=== PATIENT | male | born 1980 | race Caucasian/White ===

== ENCOUNTER 2023-08-27 09:58 | Outpatient (AMB) | payer OTHER, SELFPAY ==
--- NOTE | 2023-08-27 10:13 | A.SPINEOV_ITS ---
Intake Intake Visit Reasons: spinal stimulator not working properly Intake Note: Mr. Paige is here today for SCS Malfuction and back pain. Landing Man Required: No Assessment & Plan Assessment & Plan (1) Lumbago: Code(s): M54.50 - Low back pain, unspecified Plan Arik (samuel Paige) is a pleasant 42 y/o M who comes in today with a CC of chronic 10/10 pain which he typically manages with a spinal cord stimulator. He reports he has a past medical history of multiple herniated discs in the lumbar spine. After two attempted diskectomies completed by neurosurgeons in [place], he had a series of lumbar spine injections, then had a spinal cord stimulator placed. He reports that when his spinal cord stimulator is working he has good pain relief and it makes it ?manageable. He reports that he takes tramadol daily to help control his pain. He states that ecoy-haf-zmznrio pain medications are not useful for him. He has tried the bulk of conservative measures including ice, heat, zjda-ruf-yoaasgu pain patches, and topical ointment/creams. He states that the reason for his self-referral today was to be evaluated for a spinal cord stimulator that has constant problems. He reports that it was placed in [place] by Artur Antunez at [facility] in 2019. He reports he has had to have the battery changed twice in the last couple of years because the device continuously weekends or stops working. It is currently in a state where it works intermittently. PMH: 2 previous lumbar diskectomies completed in [place]. Seasonal allergies. Social hx: Patient does not use nicotine, does smoke cannabis daily. Medications: Loratadine, ketoconazole, tramadol. Allergies: Erythromycin. Physical exam: Cranial nerves II-XII grossly intact. No sensational deficits. No pain to direct palpation of thoracic/lumbar spine. He has a spinal cord stimulator placed on the left lateral side of the mid-lumbar spine. There is a lead incision midway up the thoracic spine. He also has prior diskectomy scars on the right lateral side of the mid-lumbar spine. The patient is able to ambulate well and rises from a seated position without difficulty. Imaging review: CT scan completed at [facility] (patient has disc) confirms placement of spinal cord stimulator on the left lateral side of the mid-lumbar spine. There is severe degenerative disc disease at L5-S1. Impression: Arik is a pleasant 42-year-old male who comes in today with a chief complaint of 10/10 low back pain that has been ongoing since his spinal cord stimulator was placed in 2019. He reports he has had multiple issues with it including battery malfunction which had to be replaced twice in the last few years. All of his previous procedures were completed in [place], and he recently moved up to [place]. He is seeing us instead of the provider who previously evaluated him in place the spinal cord stimulator because he will not be going back down to [place] per his report. His spinal cord stimulator medical card will be scanned to his chart. The options we discussed are as follows: 1) We could replace the battery in his spinal cord stimulator again, however he is not very enthusiastic about this as the battery has already been placed multiple times. 2) We could remove the spinal cord stimulator completely but this would leave him with back pain and no obvious or readily available solution to treat this pain. 3) We can refer him to our colleagues in pain management to evaluate him for possible placement of a new spinal cord stimulator, and we can assist in the removal of his current spinal cord stimulator. After much discussion he settled on being referred to our colleagues at pain management. Thank you for allowing us to care for your patient. The total time spent with this visit with this patient was 45 minutes reviewing history, physical exam, CT scan imaging review, and implementation of treatment plan or further diagnostic testing Vikram Rodrigez MD,PhD [facility] Coding Level of Care Code New Pt Level 4 (94215) Diagnoses Lumbago M54.50
== END 2023-08-27 10:33 | disposition home or self-care (01) ==
PROVIDERS: PCP Physician Assistant; Visit Provider Physician Assistant
DX: M54.50 Low back pain, unspecified (principal)
CPT/HCPCS: 99204

== ENCOUNTER → 2023-08-27 09:58 | Outpatient (BNVA) | payer OTHER, SELFPAY | PROVIDERS: PCP Physician Assistant; Visit Provider Physician Assistant | DX: M54.50 Low back pain, unspecified (principal) | CPT/HCPCS: 99202 ==

== ENCOUNTER 2023-09-03 10:36 | Outpatient (AMB) | payer OTHER, SELFPAY ==
--- NOTE | 2023-09-03 10:41 | A.OFFVIS_ITS ---
Intake Vital Signs 09/03/23 10:55 Height 5 ft 10 in Weight 245 lb BMI 35.2 BP 148/98 H Blood Pressure Location Rt brachial Position Standing Respiration 18 Pulse 93 Pulse Source Pulse Oximeter Pulse Oximetry (%) 96 Oxygen Delivery Method Room Air Intake Visit Reasons: DISCUSS SPINAL CORD STIMULATOR/CONFIRM Intake Note: Patient comes in for initial visit was referred by spine center. Reports pain 04/08. Allergies erythromycin base [From Erythrocin] Allergy (Mild, Verified 09/03/23 10:47) Unknown HPI HPI Comments History of Present Illness Details Mr. Paige, who prefers to be called as such ?Mr. Paige ?, is here with complains on lower back pain and pain radiation into bilateral lower extremities. He reports inability to seat for a long period of time. He reports that he suffers from this pain for more than 10 years. Originally he was treated for this pain with intradiscal surgery in [place], he reported that he had to surgeries in 1 level presumably L5-S1. In 2012 he was implanted with [employer] spinal cord stimulator. The device was implanted apparently via surgical laminotomy in the thoracic spine. He reports that his battery were replaced 3 times and nevertheless he denies the help from the spinal cord stimulator. He reports that spinal cord stimulator initially was very effective for control of his pain. Now it has been more than 10 years since the implantation. He also reports that his bilateral lower extremities from the level of mid thigh completely numb. He states that he had EMG performed in [place] however he does not remember the name of the facility. He reports today that his pain is 10 + out of 10 he is unable to sleep normally he can not do activities of daily living he can not take care of himself but he can not function normally. He is suffering from 24 hours 7 days a week severe pain without variation. He was prescribed tramadol for his pain and he is taking 50 mg 4 times a day. He had numerous attempts at physical therapy each time physical therapy gave him very short pain relief insufficient enough to help his pain. [facility] Medical History (Updated 09/03/23 @ 11:48 by Dave Cerda MD) Vertebrogenic low back pain Social History (Updated 09/03/23 @ 10:58 by Denisse Garcia) Alcohol intake: former Patient Tobacco Use Status: Former Tobacco user Use of substances other than those prescribed or required for medical reasons: Yes Substance Use Type: Marijuana Review of Systems Const All systems reviewed & are unremarkable except as noted in HPI and below ENT Reports Normal hearing present Neuro Reports Normal hearing present, Denies Abnormal speech present and Denies Sensory deficit (Neuro) Physical Exam Vital Signs: Last Vital Signs Pulse 93 09/03/23 10:55 Resp 18 09/03/23 10:55 BP 148/98 H 09/03/23 10:55 Pulse Ox 96 09/03/23 10:55 Oxygen Delivery Method Room Air 09/03/23 10:55 BMI result Body Mass Index 35.2 Const General: no acute distress Nutritional Appearance: well nourished and other (Very muscular well-developed gentleman) Orientation/consciousness: patient oriented x3 Eyes General: appearance normal, both eyes and all related structures Pupils: Equal, round and reactive pupils present EOM: EOMs intact bilaterally Neck Neck: Yes full ROM Chest Chest palpation & inspection: normal inspection of the chest Resp Effort & Inspection: normal respiratory effort, able to speak in complete sent ences, normal respiratory pattern, no audible wheezes and no cough Cardio Jugular venous distension: no JVD GI Inspection: Yes normal to inspection Back/Spine/Pelvis Other: Cranial nerves II-XII grossly intact. Reports numbness of bilateral lower extremities from the level of mid thighs. No pain to direct palpation of thoracic/lumbar spine. He has a spinal cord stimulator placed on the left lateral side of the mid-lumbar spine. There is a lead incision midway up the thoracic spine. He also has prior diskectomy scars on the right lateral side of the mid-lumbar spine. The patient is able to ambulate well and rises from a seated position without difficulty. He reports pain exacerbation with prolonged sitting. Neuro General: patient oriented x3 and gait normal Cranial nerves: Yes CN's II-XII intact bilaterally, Yes Equal, round and reactive pupils present, Yes Normal hearing present and Yes Ability to bilaterally elevate shoulders present Speech: No Abnormal speech present Gait exam (Neuro): Normal gait present Motor exam (neuro): 5/5 motor strength present throughout Sensory Exam: No Sensory deficit (Neuro) Extrem General: No pedal edema Psych Speech and movement: Normal speech and movement present Affect: normal affect Attitude: cooperative Thought process: Normal thought process present Thought content: Normal thought content present Insight: Good insight present (Psych) Judgement: Good judgement present (Psych) Results Reviewed Results Reviewed: The patient had CT scan of the lumbar spine at [facility]. Attention was attracted to endplate ulceration at L5-S1 level. Assessment & Plan Assessment & Plan (1) Postlaminectomy syndrome: Code(s): M96.1 - Postlaminectomy syndrome, not elsewhere classified (2) Vertebrogenic low back pain: Code(s): M54.51 - Vertebrogenic low back pain (3) Low back pain associated with a spinal disorder other than radiculopathy or spinal stenosis: Code(s): M54.50 - Low back pain, unspecified (4) Spinal cord stimulator dysfunction: Code(s): T85.192A - Other mechanical complication of implanted electronic neurostimulator of spinal cord electrode (lead), initial encounter Plan Unfortunately this patient was given spinal cord stimulator very early in his life. Now the device ran its course and most likely will not be effective for his pain in significant extent. Attention is attracted to the changes of the L5-S1 vertebral bodies which could be evident of vertebra genic pain syndrome. Unfortunately because of his spinal cord stimulator patient can not go to the MRI machine. I will order him a CT scan with and without contrast for the lumbar spine. I also would like to see thoracic CT to evaluate position of the spinal cord stimulator paddle and ability of this device to be removed. It is remains to be seen whether or not intercept procedure could help this patient. Possibility exists that after so long a course of treatment those are very advanced Modic type changes 3 and4. At this moment before evaluating his CT scan with and without contrast of the lumbar spine I can only offer him intrathecal pain pump. Because he is now under treatment with opioids I can offer him trials of Prialt and bupivacaine. Eventually if he will develop better pain control on those medications and we will be able to wean him off of the tramadol we can add opioids to his pain pump. Brochure Buxfer I DDD was given to the patient. The psychological evaluation need was explained to the patient. I will see this patient as soon as he will complete his CT scan of the lumbar and thoracic spine with and without contrast. 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 Coding Level of Care Code New Pt Level 4 (69644) Diagnoses Postlaminectomy syndrome M96.1 Vertebrogenic low back pain M54.51 Low back pain associated with a spinal disorder other than radiculopathy or spinal stenosis M54.50 Spinal cord stimulator dysfunction T85.192A
[2023-09-03 10:55] VITALS: BP 148/98; PULSE 93; RESP 18; O2SAT 96; BMI 35.2
== END 2023-09-03 11:28 | disposition home or self-care (01) ==
PROVIDERS: PCP Physician Assistant; Referring Provider Physician Assistant; Visit Provider Anesthesiology
DX: M96.1 Postlaminectomy syndrome, not elsewhere classified (principal); M54.51 Vertebrogenic low back pain; M54.50 Low back pain, unspecified; T85.192A Other mechanical complication of implanted electronic neurostimulator of spinal cord electrode (lead), initial encounter
CPT/HCPCS: 99204

== ENCOUNTER → 2023-09-03 10:36 | Outpatient (BNVA) | payer OTHER, SELFPAY | PROVIDERS: PCP Physician Assistant; Referring Provider Physician Assistant; Visit Provider Anesthesiology | DX: T85.192A Other mechanical complication of implanted electronic neurostimulator of spinal cord electrode (lead), initial encounter (principal); M96.1 Postlaminectomy syndrome, not elsewhere classified; M54.51 Vertebrogenic low back pain; M54.50 Low back pain, unspecified | CPT/HCPCS: 99202 ==

== ENCOUNTER 2023-09-17 10:37 | Outpatient (AMB) | payer OTHER, SELFPAY ==
--- NOTE | 2023-09-17 10:57 | A.SPINEOV_ITS ---
Intake Intake Visit Reasons: discuss stimulator removal Intake Note: Mr. Paige is here to Discuss Stimulator Removal Allergies erythromycin base [From Erythrocin] Allergy (Mild, Verified 09/03/23 10:47) Unknown Assessment & Plan Assessment & Plan (1) Spinal cord stimulator dysfunction: Code(s): T85.192A - Other mechanical complication of implanted electronic neurostimulator of spinal cord electrode (lead), initial encounter Plan Arik is a pleasant 42-year-old male who comes in today with a chief complaint of continued low back pain despite previous lumbar spine surgeries and placement of a spinal cord stimulator. We most recently referred him to pain management for evaluation of his low back pain and recommendations regarding his pain control. They offered him several interventions and ordered imaging for him. Unfortunately he was not satisfied with this answer and requested to be seen in our office again for additional referral options. We discussed the possibility of having his spinal cord stimulator battery replaced. Unfortunately if we were to schedule him for this he would be booked out to November. We referred him back to our colleagues at pain management, specifically Dr. Reis per the patients request to discuss replacement of a spinal cord stimulator battery. I reached out to Dr. Reis to make him aware of this. Total amount of time spent in this visit was 20 minutes in discussion of symptoms, referral options, and subsequent plan of care. Vikram Rodrigez MD,PhD [facility] Orders: Referrals Pain Management Referral T85.192A - Other mechanical complication of implanted electronic neurostimulator of spinal cord electrode (lead), initial encounter Coding Level of Care Code Est Pt Level 3 (35146) Diagnoses Spinal cord stimulator dysfunction T85.192A
== END 2023-09-17 11:41 | disposition home or self-care (01) ==
LOC: HO.HNS 10:37
PROVIDERS: PCP Physician Assistant; Visit Provider Physician Assistant
DX: T85.192A Other mechanical complication of implanted electronic neurostimulator of spinal cord electrode (lead), initial encounter (principal)
CPT/HCPCS: 99213

== ENCOUNTER → 2023-09-17 10:37 | Outpatient (BNVA) | payer OTHER, SELFPAY | PROVIDERS: PCP Physician Assistant; Visit Provider Physician Assistant | DX: T85.192A Other mechanical complication of implanted electronic neurostimulator of spinal cord electrode (lead), initial encounter (principal) | CPT/HCPCS: 99212 ==

== ENCOUNTER → 2023-09-24 09:18 | Outpatient (BNVA) | payer OTHER, SELFPAY | PROVIDERS: PCP Physician Assistant; Visit Provider Anesthesiology ==

== ENCOUNTER 2023-10-22 08:32 | Outpatient (REF) | payer OTHER, SELFPAY ==
--- NOTE | ~2023-10-22 | CT_ITS ---
EXAMINATION: CT THORACIC SPINE CLINICAL INFORMATION: Mechanical complication of implanted electronic neurostimulator, with echogenic back pain COMPARISON: None available. TECHNIQUE: Multiple 2 mm axial images were obtained from C7 to T12/L1 level before and after intravenous injection of 85 mL Omnipaque 350. Bone window and soft tissue window images were reconstructed. Coronal and sagittal bone window images were reconstructed from the axial image data. This CT examination was performed using dose optimization techniques as appropriate, variously including the following: *Automated exposure control *Adjustment of mA and/or kV according to patient size (this includes techniques or standardized protocols for targeted exams where dose is matched to indication/reason for exam; i.e. extremities or head) *Use of iterative reconstruction technique DLP: 2085 mGy-cm FINDINGS: The visualized thoracic spine is intact with normal alignment. Intervertebral disc spaces are mildly reduced from T7-T8 to T10-T11. Vertebral degenerative changes are seen at superior T8 and inferior T9. Prominent sharp right lateral anterior T8-T9 bridging syndesmophytes are present. Bilateral thoracic apophyseal joints, pedicles, spinous processes are unremarkable. Bilateral thoracic bony neural foramina are patent. The visualized posterior medial portion of bilateral ribs are intact. No evidence of bony thoracic spinal stenosis. Lower back subcutaneous nerve stimulator is seen with electrodes passing up the thoracic spinal canal ending at T7/T8 junction. Post contrast images show no abnormal enhancing intracanalicular mass lesion or rim-enhancing fluid collection. Evaluation remains limited by metallic artifacts caused by nerve stimulator electrodes. CT/CT thoracic spine wo/w IV con IMPRESSION: 1. No evidence of acute fracture or dislocation of the thoracic spine. 2. Mild degenerative thoracic disc disease from T7-T8 to T10-T11, prominent T8-T9 bridging syndesmophytes are seen. 3. Lower back subcutaneous nerve stimulator is seen with electrodes passing up the thoracic spinal canal ending at T7/T8 junction. 4. No evidence of thoracic spine intracanalicular enhancing mass lesion or epidural abscess.
--- NOTE | ~2023-10-22 | CT_ITS ---
EXAMINATION: CT LUMBAR SPINE WITHOUT AND WITH CONTRAST CLINICAL INFORMATION: Postlaminectomy syndrome, vertebrogenic low back pain COMPARISON: None available. TECHNIQUE: Multiple 2 and 1.5 mm axial images of the lumbar spine were obtained from lower T12 to S1 levels without IV contrast enhancement. Bone window and soft tissue window images were reconstructed. Coronal and Sagittal bone window images were also reconstructed from the axial image data. This CT examination was performed using dose optimization techniques as appropriate, variously including the following: *Automated exposure control *Adjustment of mA and/or kV according to patient size (this includes techniques or standardized protocols for targeted exams where dose is matched to indication/reason for exam; i.e. extremities or head) *Use of iterative reconstruction technique DLP: 3527.69 mGy-cm FINDINGS: T12/L1: Bony structures are intact with normal alignment. Intervertebral disc height is normal. Bilateral neuroforamina are patent. Bilateral apophyseal joints are intact with normal alignment. L-1/L-2: Bony structures are intact with normal alignment. Intervertebral disc height is normal. Bilateral neuroforamina are patent. Bilateral apophyseal joints are intact with normal alignment. L2/L3: Bony structures are intact with normal alignment. Intervertebral disc height is normal. Bilateral neuroforamina are patent. Bilateral apophyseal joints are intact with normal alignment. L3/L4: Bony structures are intact with normal alignment. Intervertebral disc height is normal. Bilateral neuroforamina are patent. Bilateral apophyseal joints are intact with normal alignment. L4/L5: Bony structures are intact with normal alignment. Sharp posterior inferior L4 syndesmophytes is present. Intervertebral disc height is normal. Bilateral neuroforamina are patent. Bilateral apophyseal joints are intact with normal alignment. There is chronic 25.2% compression fracture of L5. L5/S1: There are extensive sclerotic changes in L5 vertebral body and superior S1 vertebral endplate. A large anterior inferior L5 vertebral endplate radiolucent Schmorl's node is present. Multiple erosions are seen at inferior L5 and superior S1 vertebral endplates. There is posterior L5 on S1 displacement by 0.5 cm. No pars interarticulares bony defects could be seen. Prominent anterior and posterior inferior L5 syndesmophytes are present. Intervertebral disc height is markedly decreased with vacuum disc phenomenon. There is mild asymmetric right neuroforaminal stenosis. Bilateral apophyseal joints are intact with normal alignment. CT/CT lumbar spine wo/w IV con IMPRESSION: 1. Chronic 25.2% compression fracture of L5. 2. Grade 1 L5-S1 retrolisthesis. 3. Marked L5/S1 degenerative disc disease with mild asymmetric right neuroforaminal stenosis. 4. Extensive sclerotic L5-S1 vertebral endplate changes are present. 5. Prominent anterior and posterior inferior L5 syndesmophytes.
[2023-10-22] MEDS: iohexoL 350 MG/ML 100 ML INFUS..BTL 85 ML IV (10:12)
== END 2023-10-22 08:33 | disposition home or self-care (01) ==
LOC: HO.CT 08:32
PROVIDERS: PCP Physician Assistant; Visit Provider Anesthesiology
DX: T85.192A Other mechanical complication of implanted electronic neurostimulator of spinal cord electrode (lead), initial encounter (principal); M96.1 Postlaminectomy syndrome, not elsewhere classified; M54.50 Low back pain, unspecified; M54.51 Vertebrogenic low back pain
CPT/HCPCS: 72130; 72133; Q9967

== ENCOUNTER 2023-11-06 14:42 | Outpatient (AMB) | payer OTHER, SELFPAY ==
--- NOTE | 2023-11-06 14:52 | MHC.OFFVIS ---
Vital Signs 11/06/23 14:55 Height 5 ft 10 in Weight 245 lb BMI 35.2 BP 132/94 H Blood Pressure Location Lt brachial Position Sitting Respiration 14 Pulse 99 Pulse Source Pulse Oximeter Pulse Oximetry (%) 97 Oxygen Delivery Method Room Air Intake Visit Reasons: follow up CT results Intake Note: Patient comes in to discuss CT scan results. Reports pain 04/08. Allergies erythromycin base [From Erythrocin] Allergy (Mild, Verified 11/06/23 14:53) Unknown HPI Comments Details: Mr. Paige, who prefers to be called as such ?Mr. Paige ?, is here again discussed results of CT scan. The dictation of the CT scan is as below. 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 He reports severe pain with prolonged sitting, severe pain with activities, severe pain with flexing his back forward. Sclerotic changes documented in the CT scan. The patient was explained possibility of treatment of his pain with intercept procedure. Unfortunately he can not go for MRI and I can not establish the grade of his Modic type changes. I offered him 2 options: 1. Intercept procedure as an attempt to alleviate the pain in the lumbar spine. 2. Trial of intrathecal drug delivery system pain pump. He also may require in the future removal of the [employer] spinal cord stimulator however it will require a surgical intervention to perform this procedure. Prior: with complains on lower back pain and pain radiation into bilateral lower extremities. He reports inability to seat for a long period of time. He reports that he suffers from this pain for more than 10 years. Originally he was treated for this pain with intradiscal surgery in [place], he reported that he had to surgeries in 1 level presumably L5-S1. In 2012 he was implanted with [employer] spinal cord stimulator. The device was implanted apparently via surgical laminotomy in the thoracic spine. He reports that his battery were replaced 3 times and nevertheless he denies the help from the spinal cord stimulator. He reports that spinal cord stimulator initially was very effective for control of his pain. Now it has been more than 10 years since the implantation. He also reports that his bilateral lower extremities from the level of mid thigh completely numb. He states that he had EMG performed in [place] however he does not remember the name of the facility. He reports today that his pain is 10 + out of 10 he is unable to sleep normally he can not do activities of daily living he can not take care of himself but he can not function normally. He is suffering from 24 hours 7 days a week severe pain without variation. He was prescribed tramadol for his pain and he is taking 50 mg 4 times a day. He had numerous attempts at physical therapy each time physical therapy gave him very short pain relief insufficient enough to help his pain. [facility] Medical History (Updated 11/06/23 @ 16:54 by Dave Cerda MD) Vertebrogenic low back pain Social History (Updated 09/03/23 @ 10:58 by Denisse Garcia) Alcohol intake: former Patient Tobacco Use Status: Former Tobacco user Substance Use Type: Marijuana Review of Systems Const All systems reviewed & are unremarkable except as noted in HPI and below ENT Reports Normal hearing present Neuro Reports Normal hearing present, Denies Abnormal speech present and Denies Sensory deficit (Neuro) Physical Exam Vital Signs: Last Vital Signs Pulse 99 11/06/23 14:55 Resp 14 11/06/23 14:55 BP 132/94 H 11/06/23 14:55 Pulse Ox 97 11/06/23 14:55 Oxygen Delivery Method Room Air 11/06/23 14:55 BMI result Body Mass Index 35.2 Const General: no acute distress Nutritional Appearance: well nourished and other (Very muscular well-developed gentleman) Orientation/consciousness: patient oriented x3 Eyes General: appearance normal, both eyes and all related structures Pupils: Equal, round and reactive pupils present EOM: EOMs intact bilaterally Neck Neck: Yes full ROM Chest Chest palpation & inspection: normal inspection of the chest Resp Effort & Inspection: normal respiratory effort, able to speak in complete sentences, normal respiratory pattern, no audible wheezes and no cough Cardio Jugular venous distension: no JVD GI Inspection: Yes normal to inspection Back/Spine/Pelvis Other: Cranial nerves II-XII grossly intact. Reports numbness of bilateral lower extremities from the level of mid thighs. No pain to direct palpation of thoracic/lumbar spine. He has a spinal cord stimulator placed on the left lateral side of the mid-lumbar spine. There is a lead incision midway up the thoracic spine. He also has prior diskectomy scars on the right lateral side of the mid-lumbar spine. The patient is able to ambulate well and rises from a seated position without difficulty. He reports pain exacerbation with prolonged sitting, reports pain increase with activity, reports pain increase with flexing forward and attempting to lift objects from the floor. Neuro General: patient oriented x3 and gait normal Cranial nerves: Yes CN's II-XII intact bilaterally, Yes Equal, round and reactive pupils present, Yes Normal hearing present and Yes Ability to bilaterally elevate shoulders present Speech: No Abnormal speech present Gait exam (Neuro): Normal gait present Motor exam (neuro): 5/5 motor strength present throughout Sensory Exam: No Sensory deficit (Neuro) Extrem General: No pedal edema Psych Speech and movement: Normal speech and movement present Affect: normal affect Attitude: cooperative Thought process: Normal thought process present Thought content: Normal thought content present Insight: Good insight present (Psych) Judgement: Good judgement present (Psych) Results Reviewed Results Reviewed: CT scan thoracic spine 10/22/2023 F INDINGS: T12/L1: Bony structures are intact with normal alignment. Intervertebral disc height is normal. Bilateral neuroforamina are patent. Bilateral apophyseal joints are intact with normal alignment. L-1/L-2: Bony structures are intact with normal alignment. Intervertebral disc height is normal. Bilateral neuroforamina are patent. Bilateral apophyseal joints are intact with normal alignment. L2/L3: Bony structures are intact with normal alignment. Intervertebral disc height is normal. Bilateral neuroforamina are patent. Bilateral apophyseal joints are intact with normal alignment. L3/L4: Bony structures are intact with normal alignment. Intervertebral disc height is normal. Bilateral neuroforamina are patent. Bilateral apophyseal joints are intact with normal alignment. L4/L5: Bony structures are intact with normal alignment. Sharp posterior inferior L4 syndesmophytes is present. Intervertebral disc height is normal. Bilateral neuroforamina are patent. Bilateral apophyseal joints are intact with normal alignment. There is chronic 25.2% compression fracture of L5. L5/S1: There are extensive sclerotic changes in L5 vertebral body and superior S1 vertebral endplate. A large anterior inferior L5 vertebral endplate radiolucent Schmorl's node is present. Multiple erosions are seen at inferior L5 and superior S1 vertebral endplates. There is posterior L5 on S1 displacement by 0.5 cm. No pars interarticulares bony defects could be seen. Prominent anterior and posterior inferior L5 syndesmophytes are present. Intervertebral disc height is markedly decreased with vacuum disc phenomenon. There is mild asymmetric right neuroforaminal stenosis. Bilateral apophyseal joints are intact with normal alignment. IMPRESSION: 1. Chronic 25.2% compression fracture of L5. 2. Grade 1 L5-S1 retrolisthesis. 3. Marked L5/S1 degenerative disc disease with mild asymmetric right neuroforaminal stenosis. 4. Extensive sclerotic L5-S1 vertebral endplate changes are present. 5. Prominent anterior and posterior inferior L5 syndesmophytes. Assessment & Plan Assessment & Plan (1) Spinal cord stimulator dysfunction: Code(s): T85.192A - Other mechanical complication of implanted electronic neurostimulator of spinal cord electrode (lead), initial encounter Category: Medical (2) Vertebrogenic low back pain: Code(s): M54.51 - Vertebrogenic low back pain Category: Medical (3) Low back pain associated with a spinal disorder other than radiculopathy or spinal stenosis: Code(s): M54.50 - Low back pain, unspecified Category: Medical (4) Postlaminectomy syndrome: Code(s): M96.1 - Postlaminectomy syndrome, not elsewhere classified Category: Medical (5) Chronic pain syndrome: Code(s): G89.4 - Chronic pain syndrome Category: Medical Plan Last time patient was explained intrathecal drug delivery system pain pump to alleviate his pain. This time I gave him an option of intercept procedure in the attempt to alleviate his pain. I gave him brochure about intercept. He will decide what he wants to do and give me a call. Patient Instructions: I here by testify that I spent 32 minutes in conversation with this patient as well as evaluating his prior records and diagnostic studies as well as planning his care and organizing this note. Coding Level of Care Code Est Pt Level 4 (81381) Diagnoses Spinal cord stimulator dysfunction T85.192A Vertebrogenic low back pain M54.51 Low back pain associated with a spinal disorder other than radiculopathy or spinal stenosis M54.50 Postlaminectomy syndrome M96.1 Chronic pain syndrome G89.4
[2023-11-06 14:55] VITALS: BP 132/94; PULSE 99; RESP 14; O2SAT 97; BMI 35.2
== END 2023-11-06 15:07 | disposition home or self-care (01) ==
PROVIDERS: PCP Physician Assistant; Visit Provider Anesthesiology
DX: T85.192A Other mechanical complication of implanted electronic neurostimulator of spinal cord electrode (lead), initial encounter (principal); G89.4 Chronic pain syndrome; M54.51 Vertebrogenic low back pain; M96.1 Postlaminectomy syndrome, not elsewhere classified
CPT/HCPCS: 99214

== ENCOUNTER → 2023-11-06 14:42 | Outpatient (BNVA) | payer OTHER, SELFPAY | PROVIDERS: PCP Physician Assistant; Visit Provider Anesthesiology | DX: T85.192D Other mechanical complication of implanted electronic neurostimulator of spinal cord electrode (lead), subsequent encounter (principal); M54.51 Vertebrogenic low back pain; M54.50 Low back pain, unspecified; M96.1 Postlaminectomy syndrome, not elsewhere classified; G89.4 Chronic pain syndrome | CPT/HCPCS: 99212 ==